=== PATIENT | male | born 1965 | race Caucasian/White ===

== ENCOUNTER 2019-01-08 11:12 | Day surgery (SDC) | payer OTHER ==
[~2019-01-08 11:12] MED LIST: CELECOXIB 100 MG CAPSULE PO ONE; FAMOTIDINE 20MG TABLET PO ONE; MECLIZINE 25 MG TABLET PO ONE; METOCLOPRAMIDE 10 MG TABLET PO ONE; VANCOMYCIN 1GM/200ML PREMIX 1 GM/200 ML PIGGYBACK IVPB ONE
[2019-01-08] MEDS ORDERED: ONDANSETRON HCL IV 4 MG/2 ML VIAL IVP ONE ×2 (11:13→12:37)
[2019-01-08] MEDS ORDERED: SEVOFLURANE 250 ML INH ONE (11:13)
[2019-01-08] MEDS ORDERED: HYDROMORPHONE HCL 2 MG/ML VIAL IV ONE (11:13)
[2019-01-08] MEDS ORDERED: FENTANYL PF 100MCG/2ML VIAL IV ONE (11:13)
[2019-01-08] MEDS ORDERED: KETOROLAC 30 MG/ML VIAL IVP ONE (11:13)
[2019-01-08] MEDS ORDERED: GLYCOPYRROLATE 0.2 MG/ML ML IV ONE (11:13)
[2019-01-08] MEDS ORDERED: DEXAMETHASONE 4 MG/ML 1ML VIAL IVP ONE ×2 (11:13)
[2019-01-08] MEDS ORDERED: MIDAZOLAM HCL 2MG/2ML VIAL IV ONE (11:13)
[2019-01-08] MEDS ORDERED: HYDROCORTISONE 100MG/VIAL IVP ONE (11:13)
[2019-01-08] MEDS ORDERED: PROPOFOL 10 MG/ML VIAL IV ONE (11:13)
[2019-01-08] MEDS ORDERED: LIDOCAINE 2% MDV (20MG/ML) 20ML VIAL IV ONE (11:13)
[2019-01-08] MEDS ORDERED: RINGERS SOLUTION,LACTATED 1,000 ML IV ONE ×2 (11:45→13:37)
[2019-01-08] MEDS ORDERED: TRANEXAMIC ACID 1,000 MG/10 ML ML IV ONE (13:36)
[2019-01-08] MEDS ORDERED: BUPIVACAINE 0.5% W/EPI MPF 30 ML VIAL SQ ONE (13:36)
[2019-01-08] MEDS ORDERED: TRANEXAMIC ACID 1,000 MG/10 ML ML IU ONE (13:36)
[2019-01-08] MEDS ORDERED: ACETAMINOPHEN 325 MG TAB PO PRN (14:48)
[2019-01-08] MEDS ORDERED: AL HYDROX/MAG HYDROX 30ML UD PO PRN (14:48)
[2019-01-08] MEDS ORDERED: TRAMADOL HCL 50 MG TABLET PO PRN (14:48)
[2019-01-08] MEDS ORDERED: ONDANSETRON HCL IV 4 MG/2 ML VIAL IVP PRN (14:48)
[2019-01-08] MEDS ORDERED: NALOXONE 0.4 MG/1 ML VIAL IVP PRN (14:48)
[2019-01-08] MEDS ORDERED: DIPHENHYDRAMINE HCL 25 MG CAPSULE PO PRN (14:48)
[2019-01-08] MEDS ORDERED: ZOLPIDEM TARTRATE 5 MG TABLET PO PRN (14:48)
[2019-01-08] MEDS ORDERED: MAGNESIUM HYDROXIDE 30 ML UDC PO PRN (14:48)
[2019-01-08] MEDS ORDERED: BISACODYL 10 MG SUPP RC PRN (14:48)
[2019-01-08] MEDS ORDERED: ACETAMINOPHEN W/ CODEINE 300MG/60MG TABLET PO PRN ×2 (14:48)
[2019-01-08] MEDS ORDERED: HYDROMORPHONE HCL 2 MG/ML VIAL IM PRN (14:48)
[2019-01-08] MEDS ORDERED: VANCOMYCIN HCL 1,000 MG in 0.9 % SODIUM CHLORIDE 250ML 250 ML IVPB SCH (15:00)
[2019-01-08] MEDS ORDERED: POTASSIUM CHLORIDE/D5-0.9%NACL 20 MEQ/1,000 ML BAG IV SCH (15:00)
[2019-01-08] MEDS ORDERED: GENTAMICIN SULFATE 560 MG in 0.9 % SODIUM CHLORIDE 100ML 100 ML IV ONE (16:15)
[2019-01-08] MEDS: HYDROCODONE/APAP 10/325 TABLET PO PRN ×2 (16:48→22:09)
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
[2019-01-08 18:03] LABS: ANTIBODY SCREEN NEGATIVE (NEGATIVE); RH TYPE POSITIVE
[2019-01-08 18:05] LABS: ABO GROUP B
[2019-01-08] MEDS: POTASSIUM CHLORIDE/D5-0.9%NACL 20 MEQ/1,000 ML BAG IV SCH (21:13)
[2019-01-08] MEDS: DOCUSATE SODIUM 100 MG CAPSULE PO SCH (21:19)
[2019-01-08] MEDS: CARVEDILOL 3.125 MG TABLET PO SCH (21:19)
[2019-01-08] MEDS ORDERED: ATORVASTATIN 20 MG TABLET PO SCH (22:00)
[2019-01-08] MEDS ORDERED: FOLIC ACID 1 MG TABLET PO SCH (22:00)
[2019-01-08] MEDS: VANCOMYCIN 1GM/200ML PREMIX 1 GM/200 ML PIGGYBACK IVPB SCH (23:44)
[2019-01-09] MEDS: HYDROCODONE/APAP 10/325 TABLET PO PRN ×2 (00:49→06:32)
[2019-01-09] MEDS: POTASSIUM CHLORIDE/D5-0.9%NACL 20 MEQ/1,000 ML BAG IV SCH ×2 (02:13→07:34)
[2019-01-09 06:25] LABS: HEMATOCRIT 39.5 % (42.0-52.0); HEMOGLOBIN 13.1 gm/dl (14.0-18.0)
[2019-01-09 06:37] LABS: BLOOD UREA NITROGEN 13 mg/dL (6-20); CREATININE 0.8 mg/dL (0.7-1.2); EST GLOMERULAR FILTRATION RATE > 60 mL/min; GLUCOSE,RANDOM 174 mg/dL (74-109)
[2019-01-09] MEDS ORDERED: PREDNISONE 5 MG TAB PO SCH (08:00)
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
--- NOTE | 2019-01-09 09:25 | Physical Therapy Tx Note ---
Physical Therapy Tx Note - Treatment Note Tolerated: Good Total Time Spent With Patient: 20 Physical Therapy Tx Note: Detail (The patient was in bed when PT arrived. The patient denied pain. The patient ambulated 120 feet x 1 WBAT on L LE with front wheeled walker independently. The patient ambulated on 3 steps using proper technique independently/supervision for safety only. The patient completed the following TKA exercises: seated heel slides, quad sets, gluteal sets, hamstring sets, andkle pumps and SLR. The patient has met all inpatient PT goals and is discharged from inpt. PT) Physical Therapy Problem List: Detail (1)Decreased L knee AROM s/p surgery. 2) Decreased L LE strength s/p surgery.) Physical Therapy Goals: 1) The patient will ambulate with appropriate assistive device community distances.(Goal Met). 2) The patient will ambulate on stairs using proper technique with supervision for safety. (Goal Met). 3) The patient will be independent with a TKA HEP.(Goal Met) Physical Therapy Plan: The patient is discharged from inpatient PT and is to continue with Home PT.
[2019-01-09] MEDS ORDERED: RIVAROXABAN 10 MG TABLET PO SCH (10:00)
[2019-01-09] MEDS ORDERED: FERROUS SULFATE 325 MG TAB PO SCH (10:00)
[2019-01-09] MEDS: DOCUSATE SODIUM 100 MG CAPSULE PO SCH (10:48)
[2019-01-09] MEDS: CARVEDILOL 3.125 MG TABLET PO SCH (10:48)
[2019-01-09] MEDS: VANCOMYCIN 1GM/200ML PREMIX 1 GM/200 ML PIGGYBACK IVPB SCH (11:20)
[2019-01-09] MEDS ORDERED: ASPIRIN 81 MG TABEC PO SCH (22:00)
--- NOTE | 2019-01-11 12:51 | Operative Note ---
DATE OF SURGERY: 01/08/2019 PREOPERATIVE DIAGNOSIS: End-stage arthrosis of the left knee. POSTOPERATIVE DIAGNOSIS: End-stage arthrosis of the left knee. OPERATION: Cemented left total knee arthroplasty using Jackson and Nephew Deidre II components with a size 6 Oxinium femur, a size 5 stemmed tibia baseplate, a 9 mm lipped highly crosslinked tibial insert, and a 35 mm all-plastic patella. STAFF SURGEON: Tung Corona MD ANESTHESIA: General. PREPARATION: Chloraprep. INDIVIDUAL CONSIDERATIONS: None. PROCEDURE: The patient was taken to the operating room, placed supine on the operating room table. He had a successful induction of a general anesthetic. The left lower extremity was prepped and draped in the usual fashion. The limb was elevated and tourniquet was inflated to 250 mmHg. The patient had a midline approach to the knee. Sharp dissection carried down through skin and subcutaneous tissue. Small veins were coagulated with a Bovie. A medial arthrotomy was performed. The patella was everted and the knee was flexed. The patient had [id number] contact in the medial and patellofemoral compartments with bone loss medially. Fat pad was resected, ACL was sacrificed, and provisional anterior meniscectomies were performed. The capsule was released from the medial proximal tibia. The initial femoral area relief pilot hole was then made freehand. The intramedullary femoral cutting jig was placed. It was cut in 7.0 degrees of valgus and adjusted for rotation and secured with pins for a 10 mm resection. The initial transverse cut was then made. The skin guide was placed in the anterior and posterior area relief pilot holes. It was found that a size 6 would be appropriate. The anterior and posterior cuts followed by chamfer cuts were made. Osteophytes removed, and a size 6 trial was placed and found to fit well. The tibia was brought forward, and the remainder of the meniscal remnants removed with a Bovie. The extraarticular tibial cutting jig was placed. It was cut in neutral with a 3-degree AP slope. Care was taken to adjust for rotation and flexion using the extraarticular alignment guide and bony landmarks. It was set for a 9 mm resection keyed off the high lateral side and secured with pins. When cutting the tibia, care was taken to preserve the PCL insertion on the tibia. Large medial osteophytes were removed, and I found that a size 5 would be appropriate. It was adjusted for rotation and secured with pins. With a 9 mm femoral trial and the 9 mm lipped trial, there was excellent motion and stability, ligamentous balance, and rotation alignment were thought to be normal. Femoral area relief pilot holes were impacted and tri-flange tibial stamp was impacted, and these trial components were removed. The patient had a thick patella and roughly 9 mm of bone was removed freehand. I was easily able to fit a 35 patella. The 3 area relief pilot holes were drilled. The tourniquet was let down briefly to get bleeders posteriorly and then placed back up again. The knee was then thoroughly irrigated out with pulsatile Betadine and saline to remove any visual or palpable debris. Bony surfaces were then dried. A size 5 stemmed tibia baseplate was cemented into place followed by impaction of the 9 mm lipped tibial insert followed by cementing in the size 6 Oxinium femur followed by cementing in the 35 mm all-plastic patella. The implant surfaces were compressed, excess cement was removed. After the cement had set, there was excellent motion and stability, ligamentous balance, rotation alignment, and patellofemoral tracking were normal. No lateral release was required. Tourniquet was let down. Hemostasis was obtained with a Bovie. After irrigation, the capsule was then closed with a running #2 quill, subcu was closed in layers with running 0 quill, skin was closed with aspen. Prior to closure, I infiltrated the skin, subcutaneous tissue, and periosteum with 30 mL of Marcaine with epinephrine. Then after closure, I injected the knee with a mixture of 30 mL of saline with 1 g of tranexamic acid, and a sterile bulky compressive LATA-type dressing was applied. The patient tolerated the procedure well. Needle and sponge counts were correct. Estimated blood loss was minimal, and he was taken back to recovery in good condition. There were no complications. , MTDD
== END 2019-01-09 12:18 | disposition home health service (06) ==
LOC: SUR 11:12 → MEDSURG 15:34 → SUR 01-09 12:18
PROVIDERS: ATTEND Orthopaedic Surgery
DX: M17.12 Unilateral primary osteoarthritis, left knee (principal); E78.00 Pure hypercholesterolemia, unspecified; M06.9 Rheumatoid arthritis, unspecified; Z79.01 Long term (current) use of anticoagulants; I25.10 Atherosclerotic heart disease of native coronary artery without angina pectoris; Z95.810 Presence of automatic (implantable) cardiac defibrillator
CPT/HCPCS: 27447; 01402; 64447; 85018; 85014; 80048; 86900; 86901; 86850; J1885; J2405; J7512; J3010; J1170; J3490 ×2; J3370 ×2; 76942; J1580; J1720; J3480; J7120

== ENCOUNTER 2019-02-19 07:25 | Day surgery (SDC) | payer OTHER ==
[2019-02-19] MEDS ORDERED: MIDAZOLAM HCL 2MG/2ML VIAL IV ONE (07:26)
[2019-02-19] MEDS ORDERED: KETOROLAC 30 MG/ML VIAL IVP ONE (07:26)
[2019-02-19] MEDS ORDERED: GLYCOPYRROLATE 0.2 MG/ML ML IV ONE (07:26)
[2019-02-19] MEDS ORDERED: *PACU ONLY* KETAMINE HCL 10 MG/ML (20ML) VIAL IV ONE (07:26)
[2019-02-19] MEDS ORDERED: SUFENTANIL CITRATE 50 MCG/ML AMPUL IV ONE (07:26)
[2019-02-19] MEDS ORDERED: MAGNESIUM SULFATE 8 MEQ(1GM)/2ML VIAL IV ONE (07:26)
[2019-02-19] MEDS ORDERED: DEXAMETHASONE 4 MG/ML 1ML VIAL IVP ONE (07:26)
[2019-02-19] MEDS ORDERED: GENTAMICIN SULFATE 40 MG/ML VIAL IV ONE (07:26)
[2019-02-19] MEDS ORDERED: ONDANSETRON HCL IV 4 MG/2 ML VIAL IVP ONE (07:26)
[2019-02-19] MEDS ORDERED: ROPIVACAINE HCL (NAROPIN) /PF 5MG/ML 20ML VIAL IV ONE (07:26)
[2019-02-19] MEDS ORDERED: PROPOFOL 10 MG/ML VIAL IV ONE (07:26)
[2019-02-19] MEDS ORDERED: RINGERS SOLUTION,LACTATED 1,000 ML IV ONE ×2 (08:05→09:50)
[2019-02-19] MEDS ORDERED: TRANEXAMIC ACID 1,000 MG/10 ML ML IV ONE (09:50)
[2019-02-19] MEDS ORDERED: BUPIVACAINE 0.5% W/EPI MPF 30 ML VIAL SQ ONE (09:50)
[2019-02-19] MEDS ORDERED: TRANEXAMIC ACID 1,000 MG/10 ML ML IU ONE (09:50)
[2019-02-19] MEDS ORDERED: AL HYDROX/MAG HYDROX 30ML UD PO PRN (10:59)
[2019-02-19] MEDS ORDERED: DIPHENHYDRAMINE HCL 25 MG CAPSULE PO PRN (10:59)
[2019-02-19] MEDS ORDERED: ACETAMINOPHEN 325 MG TAB PO PRN (10:59)
[2019-02-19] MEDS ORDERED: KETOROLAC 30 MG/ML VIAL IVP PRN (10:59)
[2019-02-19] MEDS ORDERED: HYDROCODONE/APAP 10/325 TABLET PO PRN (10:59)
[2019-02-19] MEDS ORDERED: HYDROMORPHONE HCL 2 MG/ML VIAL IM PRN (10:59)
[2019-02-19] MEDS ORDERED: TRAMADOL HCL 50 MG TABLET PO PRN (10:59)
[2019-02-19] MEDS ORDERED: ZOLPIDEM TARTRATE 5 MG TABLET PO PRN (10:59)
[2019-02-19] MEDS ORDERED: BISACODYL 10 MG SUPP RC PRN (10:59)
[2019-02-19] MEDS ORDERED: MAGNESIUM HYDROXIDE 30 ML UDC PO PRN (10:59)
[2019-02-19] MEDS ORDERED: ONDANSETRON HCL IV 4 MG/2 ML VIAL IVP PRN (10:59)
[2019-02-19] MEDS ORDERED: NALOXONE 0.4 MG/1 ML VIAL IVP PRN (10:59)
[2019-02-19] MEDS ORDERED: ACETAMINOPHEN W/ CODEINE 300MG/60MG TABLET PO PRN (10:59)
[2019-02-19] MEDS ORDERED: CEFAZOLIN 2 Gram 2 GM/50 ML BAG IVPB SCH (11:00)
[2019-02-19 11:48] LABS: ABO GROUP B
[2019-02-19 11:49] LABS: ANTIBODY SCREEN NEGATIVE (NEGATIVE); RH TYPE POSITIVE
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
[2019-02-19] MEDS: ACETAMINOPHEN W/ CODEINE 300MG/60MG TABLET PO PRN ×2 (19:18→23:15)
[2019-02-19] MEDS: VANCOMYCIN 1GM/200ML PREMIX 1 GM/200 ML PIGGYBACK IVPB SCH (19:24)
[2019-02-19] MEDS: POTASSIUM CHLORIDE/D5-0.9%NACL 20 MEQ/1,000 ML BAG IV SCH (20:11)
[2019-02-19] MEDS: DOCUSATE SODIUM 100 MG CAPSULE PO SCH (21:48)
[2019-02-19] MEDS: CARVEDILOL 3.125 MG TABLET PO SCH (21:48)
[2019-02-20 06:31] LABS: HEMATOCRIT 36.6 % (42.0-52.0); HEMOGLOBIN 12.2 gm/dl (14.0-18.0)
[2019-02-20 06:50] LABS: BLOOD UREA NITROGEN 14 mg/dL (6-20); CREATININE 0.8 mg/dL (0.7-1.2); EST GLOMERULAR FILTRATION RATE > 60 mL/min; GLUCOSE,RANDOM 132 mg/dL (74-109)
[2019-02-20] MEDS: ACETAMINOPHEN W/ CODEINE 300MG/60MG TABLET PO PRN (07:18)
[2019-02-20] MEDS: HYDROCODONE/APAP 10/325 TABLET PO PRN ×2 (07:21→14:18)
[2019-02-20] MEDS: VANCOMYCIN 1GM/200ML PREMIX 1 GM/200 ML PIGGYBACK IVPB SCH (08:04)
--- NOTE | 2019-02-20 08:20 | Operative Note ---
DATE OF SURGERY: 02/19/2019 PREOPERATIVE DIAGNOSIS: End-stage arthrosis of the right knee. POSTOPERATIVE DIAGNOSIS: End-stage arthrosis of the right knee. OPERATION: Cemented right total knee arthroplasty using Jackson and Nephew components with a size 6 Oxinium Gen II femoral component, a size 5 stemmed Gen II tibia baseplate, a 9 mm thick lipped highly crosslinked tibial insert, and a 35 mm all-plastic patella. STAFF SURGEON: Tung Corona MD ANESTHESIA: General. PREPARATION: Chloraprep. INDIVIDUAL CONSIDERATIONS: None. PROCEDURE: The patient was taken to the operating room, placed supine on the operating room table. He had a successful induction of a general anesthetic. The right leg was then prepped and draped in the usual fashion. The patient had a midline approach to the knee. The limb was elevated and tourniquet was inflated to 250 mmHg. Sharp dissection carried down through skin and subcutaneous tissue. It should be noted that I had to follow a previous scar, so I had to kind of curve along the lateral side. Once through the subcu, a medial arthrotomy was performed. The patella was everted and the knee was flexed. The patient had exposed bone in the patellofemoral compartment extending into the medial femoral condyle with bone loss from his injury. Fat pad was resected, ACL was sacrificed, and provisional anterior meniscectomies were performed. The capsule was released from the medial proximal tibia. The initial femoral corporate pilot hole was then made freehand. The intramedullary femoral cutting jig was placed. It was cut in 7.0 degrees of valgus and adjusted for rotation and secured with pins for a 10 mm resection. The initial transverse cut was then made. The skin guide was placed in the anterior and posterior corporate pilot holes. It was found that a size 6 would be appropriate. The anterior and posterior cuts were then made. Osteophytes removed, and a size 6 trial was placed and found to fit well. The tibia was brought forward, and the remainder of the meniscal remnants removed with a Bovie. The extraarticular tibial cutting jig was placed. It was cut in neutral with a 3-degree AP slope. Care was taken to adjust for rotation and flexion using the extraarticular alignment guide and bony landmarks. It was set for a 9 mm resection keyed off the high lateral side and secured with pins. When cutting the tibia, care was taken to preserve the PCL insertion on the tibia. After removing osteophytes, I could easily fit a size 5. It was adjusted for rotation and secured with pins. With a 9 mm lipped trial and femoral trial, there was excellent motion and stability. Ligamentous balance and rotation alignment were thought to be normal. Femoral corporate pilot holes were impacted and the tibial keel stamp was impacted, and these trial components were removed. The patient had a thick patella and roughly 9 mm of bone was removed freehand with an oscillating saw. I could easily fit a 35 patella. The 3 corporate pilot holes were then drilled. The tourniquet was let down briefly to get bleeders posteriorly and then placed back up again. The knee was then thoroughly irrigated out with pulsatile Betadine and saline to remove any visual or palpable debris. Bony surfaces were then dried. A size 5 stemmed tibia baseplate was cemented into place followed by impaction of the 9 mm lipped tibial insert followed by cementing in the size 6 Oxinium femur followed by cementing in the 35 mm patella. The implant surfaces were compressed, excess cement was removed. After the cement had set, there was excellent motion and stability. Ligamentous balance, rotation alignment, and patellofemoral tracking were normal. No lateral release was required. Tourniquet was let down. Hemostasis was obtained with a Bovie. After irrigation, the capsule was then closed with a running #2 quill. Prior to this, I infiltrated the skin, subcu, and periosteum with 30 mL of 0.5% Marcaine with epinephrine. After closing the capsule, the subcu was closed with 0 quill, skin was closed with aspen and a sterile bulky compressive LATA-type dressing was applied. Prior to placing the dressing, I did mix 30 mL of saline with 1 g of tranexamic acid and injected into the knee through a sterile 18- gauge needle. The patient tolerated the procedure well. Needle and sponge counts were correct. Estimated blood loss was minimal, and he was taken back to recovery in good condition. There were no complications. GUNJAN
[2019-02-20] MEDS ORDERED: FOLIC ACID 1 MG TABLET PO SCH (10:00)
[2019-02-20] MEDS ORDERED: ASPIRIN 81 MG TABEC PO SCH (10:00)
[2019-02-20] MEDS ORDERED: ATORVASTATIN 20 MG TABLET PO SCH (10:00)
[2019-02-20] MEDS ORDERED: FERROUS SULFATE 325 MG TAB PO SCH (10:00)
[2019-02-20] MEDS ORDERED: PREDNISONE 5 MG TAB PO SCH (10:00)
[2019-02-20] MEDS ORDERED: RIVAROXABAN 10 MG TABLET PO SCH (10:00)
[2019-02-20] MEDS: POTASSIUM CHLORIDE/D5-0.9%NACL 20 MEQ/1,000 ML BAG IV SCH ×3 (10:23→14:28)
[2019-02-20] MEDS: CARVEDILOL 3.125 MG TABLET PO SCH (10:28)
[2019-02-20] MEDS: DOCUSATE SODIUM 100 MG CAPSULE PO SCH (10:28)
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
--- NOTE | 2019-02-20 11:29 | Physical Therapy Tx Note ---
Physical Therapy Tx Note - Treatment Note Tolerated: Good Total Time Spent With Patient: 20 Physical Therapy Tx Note: Detail (Patient was supine in bed upon [employer] arrival. Patient states right knee isn't too painful right now, had pain medication earlier. Patient transferred supine to sit independently. Patient transferred sit to and from stand SBA x1. Patient ambulated 338 feet with standard walker SBA x1. Patient descended and ascended 3 steps with using stairwell railing and walker. Patient transferred sit to supine independently. Patient performed the following exercises x10 reps each: SLR, hamstring sets, heel slides, quad sets, glut squeezes, and ankle pumps. Patient was left supine in bed with call light within reach. Patient tolerated treatment well. Patient discharged from inpatient PT at this time as all goals are met.) Physical Therapy Problem List: Detail (Decreased R knee AROM s/p surgery.) Physical Therapy Goals: 1) The patient will be independent with TKA HEP. Met. 2) The patient will demonstrate good understanding of technique for ambulation on the stairs. Met. Prognosis: Good Physical Therapy Plan: Patient discharged from inpatient PT at this time as all goals are met.
== END 2019-02-20 15:47 | disposition home or self-care (01) ==
LOC: SUR 07:25 → MEDSURG 12:13 → SUR 02-20 15:47
PROVIDERS: ATTEND Orthopaedic Surgery
DX: M17.11 Unilateral primary osteoarthritis, right knee (principal); Z79.01 Long term (current) use of anticoagulants; E78.00 Pure hypercholesterolemia, unspecified; M06.9 Rheumatoid arthritis, unspecified; I25.10 Atherosclerotic heart disease of native coronary artery without angina pectoris; Z95.810 Presence of automatic (implantable) cardiac defibrillator
CPT/HCPCS: 27447; 01402; 64447; 85018; 85014; 80048; 86900; 86901; 86850; J1885; J2405; J7512; J3490; J2795; J3370 ×2; 76942; J1580; J7120